=== PATIENT | male | born 2005 | race Caucasian/White ===

== ENCOUNTER 2025-07-03 07:31 | Emergency (ER) | payer OTHER, SELFPAY ==
[2025-07-03 07:39] VITALS: BP 124/69
[2025-07-03] MEDS: NSS 1000 IV (08:07)
--- NOTE | 2025-07-03 08:09 | ED.GENMED ---
History of Present Illness
General
Chief Complaint: Abdominal Pain
Source: patient
Exam Limitations: none
Time Seen by Provider: 07/03/25 08:01
Nursing documentation reviewed up to this point in time: agreed with
History of Present Illness
History of Present Illness:
Note:
CHIEF COMPLAINT(S)
Vomiting episodes.
HISTORY OF PRESENT ILLNESS
The patient is a 19-year-old male who presents with vomiting that began at approximately 5 a.m. today. He reports frequent vomiting since the onset. He indicates a history of stomach issues that sometimes awaken him at night due to discomfort, but
notes that the current situation is more severe than previous episodes. The patient admits to smoking marijuana, approximately several times a day, which may be leading to a condition suspected to be cannabis-induced hyperemesis syndrome. The
patients rectal temperature is noted to be 95.8�F.
CHRONIC MEDICAL CONDITIONS SIGNIFICANTLY AFFECTING CARE
The patient smokes marijuana, which may contribute to the current vomiting episode.
SOCIAL DETERMINANTS AFFECTING HEALTH
The patient reports regular marijuana use, several times a day.
PAST SURGICAL HISTORY
The patient mentions a past bone fracture.
REVIEW OF SYSTEMS
- Gastrointestinal: Frequent vomiting episodes.
- Neurological: Reports of being awakened by stomach issues due to discomfort.
PHYSICAL EXAM
General: Alert, no acute distress.
Skin: Warm, dry.
Head: Normocephalic, atraumatic.
Neck: Supple, trachea midline.
Eyes, Ears, Nose, Mouth and Throat: Oral mucosa moist.
Cardiovascular: Normal peripheral perfusion, no edema.
Respiratory: Respirations are non-labored.
Gastrointestinal: Abdominal discomfort mentioned, details not elaborated.
Back: Normal range of motion, normal alignment.
Musculoskeletal: Normal ROM, normal strength.
Neurological: Alert and oriented to person, place, time, and situation, no focal neurological deficit observed.
Psychiatric: Cooperative, appropriate mood & affect.
PROBLEM LIST
Acute: Vomiting likely due to cannabis use.
PLAN
Evaluate with appropriate diagnostics to rule out other potential causes of vomiting. Monitor electrolytes and administer intravenous fluids to address dehydration and electrolyte imbalance. Consider antiemetic therapy to alleviate symptoms.
DIFFERENTIAL DIAGNOSIS
The Differential Diagnosis includes, in no particular order and is not limited to:
1. Cannabis-induced hyperemesis syndrome
2. Gastroenteritis
3. Gastroesophageal reflux disease
4. Gastritis or peptic ulcer disease
5. Pancreatitis
6. Biliary tract disease
7. Appendicitis
8. Intestinal obstruction
9. Central nervous system disorders (e.g., increased intracranial pressure)
10. Medication side effects (if applicable)
CARE-UPDATE
07/03/25 - 14:39
Patient reports improvement following administration of two doses of IV Halval. Patient expressed a desire to be discharged.
EKG
My independent EKG interpretation is:
- Rhythm: Sinus rhythm
- AK Interval: Short
- QT Interval: 451 ms
- Noted Abnormality: Early repolarization
Disposition:
SUMMARY OF ENCOUNTER
The patient is a 19-year-old male presenting with frequent vomiting episodes that began early this morning. Given his history of significant marijuana use, cannabis hyperemesis syndrome was suspected. Throughout his stay in the emergency department,
he underwent an abdominal examination which showed no peritoneal signs. An electrocardiogram was independently interpreted, revealing a sinus rhythm with a short AK interval, and early repolarization was noted. There was improvement noted after
administering intravenous fluids and medications.
DISPOSITION
The patient was stable for discharge after expressing improvement in symptoms and having received appropriate hydration and management.
ASSESSMENT
1. Vomiting, likely due to cannabis hyperemesis syndrome.
2. Leukocytosis likely attributed to repetitive vomiting episodes.
EMERGENCY TREATMENTS ADMINISTERED
The patient received intravenous fluids and antiemetics to control the vomiting symptoms.
PLAN
Monitor electrolytes and ensure the patient remains hydrated. Recommend cessation of marijuana use due to its suspected role in exacerbating vomiting episodes. Arrange follow-up with primary care for reassessment and further management to prevent
recurrence.
INDEPENDENT REVIEW OF LABS AND INTERPRETATION OF TESTS
My independent review of the electrocardiogram (EKG) demonstrates sinus rhythm with a short AK interval and early repolarization.
Leukocytosis noted likely due to frequent vomiting episodes.
PATIENT EDUCATION AND COUNSELING
The patient was educated on the suspected diagnosis of cannabis hyperemesis syndrome and advised to abstain from marijuana. Discussion on the importance of follow-up care and the need to monitor symptom recurrence was emphasized.
FOLLOW-UP INSTRUCTIONS
The patient was instructed to follow up with his primary care physician for continued management and reassessment of vomiting episodes.
MEDICATION RECONCILIATION
The patient received intravenous fluids and antiemetics administered during the emergency department visit.
MEDICAL DECISION MAKING
- Complexity of Data Reviewed: Chronic conditions affecting care include the patients history of frequent marijuana use which likely contributes to the vomiting episodes.
-Data:
Category 1
My independent interpretation of the electrocardiogram showed sinus rhythm with a short AK interval and early repolarization.
-Risk:
Consideration of Admission/Observation: Escalation of care including admission/observation was considered, but ultimately the patient is deemed safe for outpatient management with close follow-up due to stabilized symptoms, improved clinical state
post-treatment, stable vitals, and compliance with discharge.
Care significantly affected by Social Determinants of Health: Regular marijuana use several times a day contributing to vomiting episodes.
DIAGNOSIS
R11.2 - Nausea with vomiting, unspecified
F12.988 - Cannabis use, unspecified, with other cannabis-induced disorder (Suspected cannabis hyperemesis syndrome)
Phy Exam
Physical Exam
Physical Exam:
.
Course
Orders/Labs/Results
Orders:
Orders
07/03/25 07:53
0.9% Sodium Chloride 1000 ml [Nss] 1,000 ml IV BOLUS
Ondansetron Injectable [Zofran] 4 mg IV NOW STA
07/03/25 07:58
Electrocardiogram (*1) Urgent
Reason for Study: QTc Monitoring
EKG- Treatment ONCE
07/03/25 08:03
Complete Blood Count/With Diff Urgent
Comprehensive Metabolic Panel Urgent
Lipase Urgent
Comment: ADD ON
07/03/25 08:19
Haloperidol Lactate [Haldol] 1 mg IV NOW STA
07/03/25 08:40
Add On- LAB Urgent
Tests Added?: lipase
07/03/25 08:57
Haloperidol Lactate [Haldol] 1 mg IV NOW STA
Abnormal Lab Results
07/03/25
08:03
WBC 17.3 H 10^3/uL
(4.8-10.8)
Abs Immat Gran (auto) 0.1 H 10^3/uL
(0-0.05)
Absolute Neuts (auto) 13.0 H 10^3/uL
(1.4-6.5)
Absolute Monos (auto) 1.1 H 10^3/uL
(0.1-0.6)
Lymphocytes % 16.8 L %
(20.5-51.1)
Carbon Dioxide 18 L mmol/L
(22-30)
Glucose 138 H mg/dl
(70-99)
Calcium 10.9 H mg/dl
(8.4-10.2)
Total Protein 8.4 H g/dl
(6.3-8.2)
Albumin 5.4 H g/dl
(3.5-5.0)
07/03/25 08:03
07/03/25 08:03
Vital Signs
Initial and Last Documented VS:
Initial Vital Signs
Pulse Resp BP Pulse Ox
75 24 124/69 100
07/03/25 07:39 07/03/25 07:39 07/03/25 07:39 07/03/25 07:39
Last Documented Vital Signs
Temp Pulse Resp BP Pulse Ox
95.8 F L 65 17 111/54 100
07/03/25 08:11 07/03/25 09:45 07/03/25 09:15 07/03/25 09:30 07/03/25 09:45
*Pulse Oximetry
SaO2: 100
Oxygen Mode of Delivery: Room air
Patient hypoxic: no
*Critical Care Note
Total Time (30-74mins, 75-104mins- exclusive of procedures): Not Applicable
ED Attending Note
-
Portions of this chart may have been created with voice recognition software.� Occasional wrong word or��sound alike� substitutions may have occurred due to the inherent limitations of voice recognition software.
Discharge Plan
Departure
Patient Disposition: Home (Routine Discharge)
Date of Disposition: 07/03/25
Time of Disposition: 09:50
Patient with high blood pressure during this ER visit?: No
Condition: Good
Discharge Problem:
Vomiting
Instructions: Nausea and Vomiting, Adult (DC), Cannabis hyperemesis syndrome
Prescriptions:
New
ondansetron 4 mg tablet,disintegrating
4 mg PO Q8H PRN (Reason: nausea and vomiting) 4 Days Qty: 10 0RF
Referrals:
Lian Forrester DO [Family Provider, Family Practice] - Call in 1-3 days for appt
Interventions
Interventions:
*General Assessment Last Done: 07/03/25 08:11
*Neglect/Abuse Screening Last Done: 07/03/25 08:11
*ED COVID-19 Vaccine History Last Done: 07/03/25 08:11
*ED Influenza Vaccine History Last Done: 07/03/25 08:11
[facility] Risk Assessment Tool Last Done: 07/03/25 08:11
*Risk Screen - Suicide (C-SSRS) Last Done: 07/03/25 08:11
*Nursing Disposition Last Done: 07/03/25 10:08
ON-Bznkri-Ttfstahkdz Assessment Last Done: 07/03/25 08:11
Discharge Date and Time
Discharge Date/Time: 07/03/25 10:09
Print Language: SWEDISH
[2025-07-03 08:11] VITALS: BP 94/69
[2025-07-03] MEDS: ZOFRAN 4 MG IV (08:16)
[2025-07-03 08:18] LABS: Hematocrit 44.0 % (39.0-52.0); Hemoglobin 15.3 g/dL (13.0-18.0); Mean Corp Hgb Conc. 34.8 g/dL (33.0-37.0); Mean Corpuscular Volume 80.9 fL (80.0-94.0); Nucleated Red Blood Cells % 0 % (-); Platelet Count 384 10^3/uL (130-400); Red Cell Dist. Width 12.5 % (11.5-14.5)
[2025-07-03] MEDS: HALDOL 1 MG IV ×2 (08:19→09:12)
[2025-07-03 08:30] LABS: ALT (SGPT) 17 U/L (0-50); AST (SGOT) 22 U/L (17-59); Albumin 5.4 g/dl (3.5-5.0); Alkaline Phosphatase 76 U/L (38-126); Blood Urea Nitrogen 13 mg/dl (9-20); Calcium 10.9 mg/dl (8.4-10.2); Carbon Dioxide 18 mmol/L (22-30); Chloride 107 mmol/L (98-107); Glucose 138 mg/dl (70-99); Potassium 4.1 mmol/L (3.5-5.1); Sodium 141 mmol/L (135-145); Total Protein 8.4 g/dl (6.3-8.2); eGFR > 60.00
[2025-07-03 08:47] VITALS: BP 111/71
[2025-07-03 09:00] VITALS: BP 118/68
[2025-07-03 09:30] VITALS: BP 111/54
[2025-07-03 09:32] LABS: Lipase 82 U/L (23-300)
== END 2025-07-03 10:09 | disposition home or self-care (01) ==
LOC: EMR 07:31
PROVIDERS: EMERGENCY PHYSICIAN Emergency Medicine; FAMILY PHYSICIAN Family Medicine
DX: R11.10 Vomiting, unspecified (principal); E86.0 Dehydration; E87.8 Other disorders of electrolyte and fluid balance, not elsewhere classified; D72.829 Elevated white blood cell count, unspecified; F12.90 Cannabis use, unspecified, uncomplicated
CPT/HCPCS: 99284; 96374; 96375; 96376; 96361; 80053; 83690; 85025; 93005